=== PATIENT | male | born 1945 | race African-American/Black ===

== ENCOUNTER → 2020-10-09 09:41 | Outpatient (BNVA) | payer BC, SELFPAY | PROVIDERS: Visit Provider Urology ==

== ENCOUNTER → 2021-01-06 13:14 | Outpatient (BNVA) | payer BC, SELFPAY | PROVIDERS: Visit Provider Urology ==

== ENCOUNTER → 2022-01-06 13:23 | Outpatient (BNVA) | payer BC, SELFPAY | PROVIDERS: PCP Internal Medicine; Visit Provider Urology | DX: N52.9 Male erectile dysfunction, unspecified (principal); N30.40 Irradiation cystitis without hematuria; C61 Malignant neoplasm of prostate | CPT/HCPCS: 51798 ==

== ENCOUNTER → 2022-08-10 14:23 | Outpatient (BNVA) | payer BC, SELFPAY | PROVIDERS: PCP Internal Medicine; Visit Provider Urology | DX: N52.9 Male erectile dysfunction, unspecified (principal) | CPT/HCPCS: 51798 ==

== ENCOUNTER 2023-08-18 10:06 | Outpatient (AMB) | payer BC, SELFPAY ==
--- NOTE | 2023-08-18 10:40 | A.OFFVIS_ITS ---
Intake Intake Visit Reasons: 1Y PSA(set)Confirmed Intake Note: Patient is Present for Follow Up Urology Medication: Terazosin Antibiotic Allergies:None Blood Thinners:None Allergies No Known Allergies Allergy (Verified 08/18/23 10:41) Medication List - Last Reconciled 08/18/23 by Miky Bloom MD amitriptyline 25 mg PO BEDTIME atorvastatin 40 mg PO DAILY blood sugar diagnostic As directed insulin aspart U-100 (Novolog U-100 Insulin aspart) subcut insulin lispro subcut losartan 100 mg PO DAILY metoprolol succinate ER 25 mg PO DAILY pantoprazole 40 mg PO DAILY terazosin 20 mg (2 x 10 mg) PO BEDTIME 90 days HPI HPI Comments History of Present Illness Details Tim Wylie is a very pleasant male. They are a patient of Dr. Aviles. They are seen in the office today for the following urologic conditions - prostate cancer - radiation cystitis - bladder outlet obstruction Yearly follow-up PSA remains undetectable Terazosin 20 mg daily Has been free from prostate cancer for 10 years Prostate cancer: 2013 Low-grade treated with external beam radiation Prostate cancer was diagnosed 2013 PSA at diagnosis 9.4, Low risk, low volume disease by D'Simeon Criteria. Diagnosis was reached by needle biopsy, for elevated PSA, PSA at diagnosis 9.4. The Tono grade is 3+3. TNM Classification of Malignant Tumours (TNM) T1c. The D'Simeon (NCCN) risk category is Low Risk (PSA< 10, Gl < 7, T1c). Initial therapy included Primary treatment, External Beam Radiation 2013. Recent labs included a PSA (prostate-specific antigen) September 2014 0.5, January 2016 1.0, 08/16 1.0 09/15 cystoscopy with radiation cystitis, no prostate narrowing 02/15 1.0, 08/17 0.9, 03/19 1.0, 07/18 PSA 1.1, 04/19 0.9, 08/19 0.9, 08/20 0.9, 12/21 1.0, 08/23 0.9 Associated conditions erectile dysfunction Yes Therapeutic plan: Continue with surveillance. Current symptoms include Minimal nocturia. Lower Urinary Tract Symptoms: Radiation cystitis. Current visit is for further evaluation of, lower urinary tract symptoms, predominate irritative symptoms. Current treatment includes medication, alpha tanvi, , terazosin 10 mg Prior treatments include Previous trial of away be medications including Toviaz and Myrbetriq with minimal impact. FORMERLY [facility] Medical History HTN (hypertension) Hypercholesterolemia Hyperlipidemia Diabetes mellitus, type II Radiation cystitis Nocturia BPH (benign prostatic hyperplasia) Glucosuria Erectile dysfunction Prostate cancer Surgical History History of surgery Social History Patient Tobacco Use Status: Former Tobacco user Review of Systems Const Denies chills and Denies fever(s) Card Reports no additional complaints and Denies syncope Resp Denies cough GI Denies abdominal pain and Denies heartburn Reports as per HPI and Denies change in libido Neuro Denies syncope Psych Denies change in libido Endo Denies change in libido Physical Exam Const General: cooperative, healthy appearing, comfortable and no acute distress Orientation/consciousness: patient oriented x3 HEENT Face and sinus: Yes normal facial exam Mouth: moist mucous membranes Neck Neck: Yes normal visual inspection, Yes full ROM and Yes trachea midline Chest Chest palpation & inspection: normal inspection of the chest Resp Effort & Inspection: normal respiratory effort, able to speak in complete sentences and no respiratory distress GI Inspection: Yes normal to inspection Back/Spine/Pelvis Cervical Spine: normal cervical lordosis Thoracic/Lumbar Spine: thoracic and lumbar spine normal to inspection Skin General skin exam: no rashes or lesions noted Neuro General: patient oriented x3, gait normal, tone normal and moves all extremities Extrem General: Yes normal to inspection and Yes capillary refill normal Assessment & Plan Assessment & Plan (1) Erectile dysfunction: Code(s): N52.9 - Male erectile dysfunction, unspecified (2) Prostate cancer: Code(s): C61 - Malignant neoplasm of prostate (3) Radiation cystitis: Code(s): N30.40 - Irradiation cystitis without hematuria Plan 12 month follow-up PSA Orders: Orders Prostate Specific Antigen 364 Days C61 - Malignant neoplasm of prostate Patient Instructions: Imaging studies, laboratory and physical exam results were discussed and reviewed in detail. No major barriers to patient understanding were identified. An opportunity to ask questions regarding the treatment plan was provided. All questions were answered. The patient expressed understanding and agreement with the above treatment plan. The patient is aware they should contact our office by phone for worsening of their current condition or the appearance of new urologic symptoms. Compliance is encouraged with any medications and followup testing that is ordered. It is a privilege to participate in the urologic care of your patient. If you have any questions or concerns regarding treatment for the above conditions, or other urologic issues, please do not hesitate to contact me. The office telephone contact is [phone]. This note is constructed using voice recognition software. While every effort has been made to ensure accuracy press pipe inspector errors may have been included. Yours sincerely, Dr Miky Bloom MD, [facility] - Urology Providers of Expert, Compassionate Care for the Genitourinary System Coding Level of Care Code Est Pt Level 4 (50521) Diagnoses Erectile dysfunction N52.9 Prostate cancer C61 Radiation cystitis N30.40
== END 2023-08-18 10:53 | disposition home or self-care (01) ==
PROVIDERS: Visit Provider Urology
DX: N52.9 Male erectile dysfunction, unspecified (principal); C61 Malignant neoplasm of prostate; N30.40 Irradiation cystitis without hematuria
CPT/HCPCS: 99213

== ENCOUNTER → 2023-08-18 10:06 | Outpatient (BNVA) | payer BC, SELFPAY | PROVIDERS: Visit Provider Urology ==

== ENCOUNTER 2024-08-16 10:25 | Outpatient (AMB) | payer MEDICARE, SELFPAY ==
--- NOTE | 2024-08-16 10:38 | A.OFFVIS_ITS ---
Intake Visit Reasons: 1y/PSA Intake Note: Patient is Present for 1y Follow Up/PSA Urology Medication: Terazosin Antibiotic Allergies:None Blood Thinners:None Piercing Mill Operator Required: No Allergies No Known Allergies Allergy (Verified 08/16/24 10:39) HPI Comments Details: Tim Wylie is a very pleasant male. They are a patient of Dr. Aviles. They are seen in the office today for the following urologic conditions - prostate cancer - radiation cystitis - bladder outlet obstruction Yearly follow-up PSA remains undetectable Terazosin 20 mg daily - higher than typical dose but has not had issues with blood pressure Has been free from prostate cancer for 10 years Insulin-dependent diabetic, last T 10/20 - Prostate cancer: 2013 Low-grade treated with external beam radiation Prostate cancer was diagnosed 2013 PSA at diagnosis 9.4, Low risk, low volume disease by D'Simeon Criteria. Diagnosis was reached by needle biopsy, for elevated PSA, PSA at diagnosis 9.4. The [place] grade is 3+3. TNM Classification of Malignant Tumours (TNM) T1c. The D'Simeon (NCCN) risk category is Low Risk (PSA< 10, Gl < 7, T1c). Initial therapy included Primary treatment, External Beam Radiation 2013. Recent labs included a PSA (prostate-specific antigen) September 2014 0.5, January 2016 1.0, 08/16 1.0 09/15 cystoscopy with radiation cystitis, no prostate narrowing 02/15 1.0, 08/17 0.9, 03/19 1.0, 07/18 PSA 1.1, 04/19 0.9, 08/19 0.9, 08/20 0.9, 12/21 1.0, 08/23 0.9, 08/24 1.0 Associated conditions erectile dysfunction Yes Therapeutic plan: Continue with surveillance. Current symptoms include Minimal nocturia. Lower Urinary Tract Symptoms: Radiation cystitis. Current visit is for further evaluation of, lower urinary tract symptoms, predominate irritative symptoms. Current treatment includes medication, alpha tanvi, , terazosin 10 mg, amitriptyline 25 mg bedtime Prior treatments include Previous trial of away be medications including Toviaz and Myrbetriq with minimal impact. FORMERLY [facility] Medical History HTN (hypertension) Hypercholesterolemia Hyperlipidemia Diabetes mellitus, type II Radiation cystitis Nocturia BPH (benign prostatic hyperplasia) Glucosuria Erectile dysfunction Prostate cancer Surgical History History of surgery Social History Patient Tobacco Use Status: Former Tobacco user Review of Systems Const Denies chills and Denies fever(s) Card Reports no additional complaints and Denies syncope Resp Denies cough GI Denies abdominal pain and Denies heartburn Reports as per HPI and Denies change in libido Neuro Denies syncope Psych Denies change in libido Endo Denies change in libido Physical Exam Const General: cooperative, healthy appearing, comfortable and no acute distress Orientation/consciousness: patient oriented x3 HEENT Face and sinus: Yes normal facial exam Mouth: moist mucous membranes Neck Neck: Yes normal visual inspection, Yes full ROM and Yes trachea midline Chest Chest palpation & inspection: normal inspection of the chest Resp Effort & Inspection: normal respiratory effort, able to speak in complete sentences and no respiratory distress GI Inspection: Yes normal to inspection Back/Spine/Pelvis Cervical Spine: normal cervical lordosis Thoracic/Lumbar Spine: thoracic and lumbar spine normal to inspection Skin General skin exam: no rashes or lesions noted Neuro General: patient oriented x3, gait normal, tone normal and moves all extremities Extrem General: Yes normal to inspection and Yes capillary refill normal Assessment & Plan Assessment & Plan (1) Radiation cystitis: Code(s): N30.40 - Irradiation cystitis without hematuria Category: Medical (2) Erectile dysfunction: Code(s): N52.9 - Male erectile dysfunction, unspecified Category: Medical (3) Prostate cancer: Code(s): C61 - Malignant neoplasm of prostate Category: Medical Plan Twelve month follow-up PSA Orders: Orders Prostate Specific Antigen 12 Months C61 - Malignant neoplasm of prostate Patient Instructions: This note is constructed using voice recognition software. While every effort has been made to ensure accuracy field application engineer errors may have been included. Imaging studies, laboratory and physical exam results were discussed and reviewed in detail. No major barriers to patient understanding were identified. An opportunity to ask questions regarding the treatment plan was provided. All questions were answered. The patient expressed understanding and agreement with the above treatment plan. The patient is aware they should contact our office by phone for worsening of their current condition or the appearance of new urologic symptoms. Compliance is encouraged with any medications and followup testing that is ordered. It is a privilege to participate in the urologic care of your patient. If you have any questions or concerns regarding treatment for the above conditions, or other urologic issues, please do not hesitate to contact me. The office telephone contact is [phone]. Sincerely, Dr Miky Bloom MD, [facility] - Urology Compassionate Specialist Care for the Genitourinary System Coding Level of Care Code Est Pt Level 4 (10571) Complex EM visit Add On G2211 Diagnoses Radiation cystitis N30.40 Erectile dysfunction N52.9 Prostate cancer C61
--- OUTSIDE RECORDS SUMMARY | 2024-08-16 12:28 | XMS_ITS | Clinical Summary ---
Author Organization [address] [place] [address] Address [address] [place] [address] Phone Care Team Providers Care Biblical Studies Professor Name Role Phone Aliza Rios MD Primary Care Provider [phone] Allergies No known active allergies Medications vitamin B complex (VITAMINS B COMPLEX ORAL) Take 1 Tablet by mouth daily. Active atorvastatin (LIPITOR) 40 mg tablet Take 40 mg by mouth daily. Active insulin aspart (NovoLOG Flexpen U-100 Insulin) 100 unit/mL (3 mL) injection pen Inject into the skin. Active aspirin 81 mg EC tablet Take 81 mg by mouth daily. Active amitriptyline (ELAVIL) 25 mg tablet Take 1 Tablet by mouth at bedtime. Active ferrous gluconate (FERGON) 240 mg (27 mg iron) tablet Take 1 Tab by mouth daily. Active multivitamin tablet Take by mouth daily. Active losartan (COZAAR) 100 mg tablet Take 100 mg by mouth daily. Active nitroglycerin (NITROSTAT) 0.[address] 0.4 mg under the tongue every 5 minutes as needed. Active pantoprazole (PROTONIX) 40 mg EC tablet Take 40 mg by mouth daily. Active terazosin (HYTRIN) 10 mg capsule Take 2 capsules (20 mg total) by mouth at bedtime. Active metoprolol succinate (TOPROL-XL) 25 mg 24 hr tabletIndicatio ns:Mixed hyperlipidemia, Atherosclerotic heart disease of solomon coronary artery without angina pectoris TAKE 1 TABLET BY MOUTH EVERY DAY 90 tablet 3 06/14/2024 Active Active Problems Problem Noted Date Diagnosed Date CAD (coronary artery disease) 07/03/2020 Overview (03/22/2024): -Describes having an angioplasty some [address] Rhoades, however, I'm not certain that Dr. Rhoades ever did angioplasty-he might have done a diagnostic cath -See description below regarding more recent symptoms -Had an ETT that was nondiagnostic -Underwent subsequent exercise nuclear stress test-he exercised for 5 minutes to 95% of max predicted heart rate with 8 out of 10 chest pain at peak exercise that resolved over 10 minutes in recovery with evidence of ischemic ECG changes in the inferolateral leads with perfusion imaging showing moderate size, moderate infarct of the basal to mid inferior wall without significant ischemia with an EF of 53% -Most recent echocardiogram in??October 2019 showed mild, concentric left ventricular hypertrophy with normal LV cavity size and systolic function, normal regional wall motion with an ejection fraction of 60 to 65%, no hemodynamically significant valve disease-measurements showing aortic valve area of 1.8 cm?? in the measurement section are likely erroneous, normal RV size and systolic function, mild right atrial enlargement, normal left atrial pressure, normal RV systolic pressure -At his initial visit with me in December 2018, he had been describing some increasing stable anginal symptoms and we attempted a trial of Toprol-XL 25 mg daily which seemed to do the trick as at follow-up visits with Jens?? Edson in March 2019 and October 2019, he was not describing anything in the way of refractory symptoms Last Assessment & Plan: No anginal symptoms described. He is euvolemic on exam. I reviewed the importance of exercising regularly and eating a healthy diet to try to lose weight. For now, continue current metoprolol 25 mg daily, aspirin 81 mg daily, atorvastatin 40 mg at bedtime. Assessment & Plan (05/09/2024 11:23 AM EST): Patient is not having any anginal symptoms at the appointment today, however he is more sedentary than he typically is. Going to update a stress echocardiogram. I spoke to him at length about improving his diet and trying to lose weight. Patient will continue on current regiment for now which includes beta-tanvi metoprolol, aspirin and atorvastatin 40 mg at bedtime. Instructed to call 911 or go to the emergency room should the patient begin to experience chest pain or pressure lasting greater than 10 minutes does not resolve with rest. Orders: Stress echocardiogram (TTE) exercise with PRN contrast, bubble, strain, and 3D order panel; Future Assessment & Plan (05/09/2024 11:23 AM EST): Patient is not having any anginal symptoms at the appointment today, however he is more sedentary than he typically is. Going to update a stress echocardiogram. Orders: ECG 12 lead Stress echocardiogram (TTE) exercise with PRN contrast, bubble, strain, and 3D order panel; Future Hypertension 07/03/2020 Overview (05/09/2024): Assessment & Plan (05/09/2024 11:23 AM EST): Patient is suboptimally controlled at the appointment today. Patient reports that he has no way to take blood pressures at home. I am going to have him come back in 2 weeks for blood pressure recheck. At that time if blood pressure is still elevated would consider switching patient from metoprolol to carvedilol. I did also speak with him about improving his diet, exercising, and weight loss. I do think that if he is able to lose a few pounds, exercise, then his blood pressure values would come down. For now, we will have patient continue on metoprolol 25 mg and losartan 100 mg p.o. daily. Orders: Stress echocardiogram (TTE) exercise with PRN contrast, bubble, strain, and 3D order panel; Future Hyperlipidemia 07/03/2020 Overview (03/22/2024): Last Assessment & Plan: Continue atorvastatin 40 at bedtime. Assessment & Plan (05/09/2024 11:23 AM EST): Would redraw lipid panel. Continue atorvastatin 40 mg at bedtime. Orders: Lipid panel; Future Stress echocardiogram (TTE) exercise with PRN contrast, bubble, strain, and 3D order panel; Future Encounters Date Type Department Care Team Description 06/05/2024 Telephone [facility] - [address] [place] [address] Theodora Alcaraz MA Results ([facility]) 05/28/2024 10:30 AM EST Ancillary Procedure [facility] - [address] [place] [address] Chronic coronary microvascular dysfunction; Hypertension, unspecified type; Hyperlipidemia, unspecified hyperlipidemia type; Coronary artery disease involving solomon heart, unspecified vessel or lesion type, unspecified whether angina present 05/23/2024 2:00 PM EST Clinical Support [facility] - [address] [place] [address] from Last 3 Months Family History Medical History Relation Name Comments Other: chronic kidney disease Father Alzheimer's disease Mother Relation Name Status Comments Father Mother Social History Tobacco Use Types Packs/Day Years Used Date Smoking Tobacco: Former Smokeless Tobacco: Never Alcohol Use Standard Drinks/Week Comments No 0 (1 standard drink = 0.6 oz pur e alcohol) Sex and Gender Information Value Date Recorded Sex Assigned at Not on file Legal Sex Male 6:55 AM EST Gender Identity Not on file Sexual Orientation Not on file Obstetrics History Last Filed Vital Signs Vital Sign Reading Time Taken Comments Blood Pressure 124/60 05/23/2024 1:46 PM EST Pulse 91 05/23/2024 1:46 PM EST Temperature - - Respiratory Rate - - Oxygen Saturation 97% 05/09/2024 10:30 AM EST Inhaled Oxygen Concentration - - Weight 97.1 kg (214 lb) 05/28/2024 11:24 AM EST Height 175.3 cm (5' 9 ) 05/28/2024 11:24 AM EST Body Mass Index 31.6 05/28/2024 11:24 AM EST Plan of Treatment Health Maintenance Due Date Last Done Comments Diabetes: Annual GFR (Glomerular Filtration Rate) 1946 Diabetes: Annual Foot Exam 1956 Diabetes: Annual Retina Eye Exam 1955 DTaP,Tdap,and Td Vaccines (1 - Tdap) 1965 Zoster Vaccines (1 of 2) 1965 Cholesterol Screening (Lipid Panel) 04/11/2022 Depression Screening 04/11/2022 Falls Risk Assessment 04/11/2022 Hepatitis C Screening 04/11/2022 Hypertension/CHF/CAD Annual BMP Blood Test 04/11/2022 Medicare Annual Wellness Visit 04/11/2022 Social Influencers of Health Screening 04/11/2022 Diabetes: Annual Urine Albumin-Creatinine Ratio (uACR) 05/09/2024 Diabetes: Blood Sugar Control Test (HGBA1C) 05/09/2024 Pneumococcal Vaccine: 50+ Years Completed 02/15/2023 Influenza Vaccine Completed 12/17/2023, , 01/28/2022, Additional history exists RSV Immunization Adult Patients Completed 12/17/2023 COVID-19 Vaccine Completed 01/04/2024, , 04/14/2021, Additional history exists HIB Vaccines Aged Out No longer eligi ble based on patient's age to complete this topic HPV Vaccines Aged Out No longer eligi ble based on patient's age to complete this topic Hepatitis A Vaccines Aged Out No long er eligible based on patient's age to complete this topic Hepatitis B Vaccines Aged Out No long er eligible based on patient's age to complete this topic IPV Vaccines Aged Out No longer eligi ble based on patient's age to complete this topic MMR Vaccines Aged Out No longer eligi ble based on patient's age to complete this topic Meningococcal ACWY Vaccine Aged Out N o longer eligible based on patient's age to complete this topic Meningococcal B Vaccine Aged Out No l onger eligible based on patient's age to complete this topic RSV Immunization Patients Under 20 months Aged Out No longer eligible based on patient's age to complete this topic Varicella Vaccines Aged Out No longer eligible based on patient's age to complete this topic Procedures Procedure Name Priority Date/Time Associated Diagnosis Comments STRESS ECHOCARDIOGRAM EXERCISE Routine 05/28/2024 11:25 AM EST Chronic coronary microvascular dysfunction Hypertension, unspecified type Hyperlipidemia, unspecified hyperlipidemia type Coronary artery disease involving solomon heart, unspecified vessel or lesion type, unspecified whether angina present from Last 3 Months Results * STRESS ECHOCARDIOGRAM EXERCISE (05/28/2024 11:25 AM EST) BSA 2.17 m2 CV PACS STRESS Exercise/injec tion duration (min) 3 CV PACS STRESS Exercise/injec tion duration (sec) 27 CV PACS STRESS Peak SBP 150 mmHg CV PACS STRESS Peak DBP 58 mmHg CV PACS STRESS Peak HR 139 bpm CV PACS STRESS Baseline HR 86 bpm CV PACS STRESS Baseline SBP 128 mmHg CV PACS STRESS Baseline DBP 62 mmHg CV PACS STRESS Estimated workload 5.6 METS CV PACS STRESS Percent HR 97 % CV PACS STRESS Rate Pressure Product 20,850.0 mmHg*bpm CV PACS STRESS Target HR 122 bpm CV PACS STRESS Angina Index 0 CV PACS STRESS Max HR Percent 97 % CV PA CS STRESS Anatomical Region Laterality Modality Ultrasound 05/28/2024 10:5 1 AM EST 05/28/2024 11:31 AM EST Narrative 06/01/2024 5:10 PM EST ?There is normal resting left ventricular systolic function and regional wall motion with an ejection fraction of 60 to 65%. ?Exercise stress test was performed. Patient reported no symptoms during the stress test. Exercise capacity was average. Normal blood pressure response; exaggerated heart rate response. ?Stress ECG was non-diagnostic due to baseline ECG abnormalities. ?The study is negative and shows no echocardiographic evidence of ischemia or infarction. Negative exercise stress echocardiogram at a diagnostic heart rate without evidence of ischemia or infarction. ??Normal resting left ventricular systolic function and regional wall motion. Left Ventricle Left ventricle cavity size is normal. There is mild concentric hypertrophy. Systolic function is normal with an ejection fraction of 60-65%. There are no regional LV wall motion abnormalities. Study Details Overall the study quality was adequate. Stress Findings A Az protocol stress test was performed. Overall, the patient's exercise capacity was average. Total stress time was 3 min and 27 sec. The patient experienced no angina during the test. The patient requested the test to be stopped due to back pain. The patient's hemodynamic response was adequate for diagnosis. Blood pressure demonstrated a normal response. Heart rate demonstrated a exaggerated response. The patient reported no symptoms during the stress test. ECG 78-year-old male with history of coronary artery disease/microvascular dysfunction; rule out ischemia. Cardiac risk factors include CAD, hypertension, hyperlipidemia, diabetes, obesity, and previous smoking history. Previous exercise nuclear stress test showed a moderate size, moderate infarct of the basal to mid inferior wall without significant ischemia. Baseline ECG shows sinus rhythm with evidence of previous inferolateral infarct and ST? T wave abnormality. The ECG axis is normal. The ECG shows premature ventricular contractions. There were no arrhythmias during stress. ECG changes are nondiagnostic due to baseline abnormalities. Arrhythmias during recovery: rare premature ventricular contractions (PVCs). ST changes returned to normal during recovery. The result of the stress ECG was non-diagnostic for ischemia due to baseline ECG abnormalities. Echo Post Stress Left ventricular cavity size decreased from baseline. Left ventricular systolic function improved from baseline. Normal wall motion, unchanged from baseline. Nuclear Measurements The study is negative and shows no echocardiographic evidence of ischemia or infarction. us Jun Sharma NP CV ECHO PROCEDURES Final Result from Last 3 Months Insurance [employer]UE [employer] - [place] MEDICARE ADVANTAGE Care Teams Biblical Studies Professor Relationship Specialty Start Date End Date Aliza Rios MD [id number] [place] [address] PCP - General Internal Medicine 05/28/24
--- OUTSIDE RECORDS SUMMARY | 2024-08-16 12:28 | XMS_ITS | Continuity of Care Document ---
Author Organization [facility] [address] [place] [address] Phone [phone] Care Team Providers Care Skin Diving Teacher Name Role Phone Aliza Rios MD Care Team Information Assurance Associate [phone] Problems Active Problems Provider Date Type 2 diabetes mellitus Raul Reyna M.D. O nset: 01/21/2022 Carotid bruit Raul Reyna M.D. Onset: 10/2023 Insulin treated type 2 diabetes mellitus Raul ash M.D. Onset: 11/26/2022 Asymptomatic coronary heart disease Raul barnett M.D. Onset: 01/21/2022 Essential hypertension Raul Reyna M.D. Ons et: 01/21/2022 Carcinoma of prostate Raul Reyna M.D. Onse t: 01/21/2022 Headache Raul Reyna M.D. Onset: Social History Type Date Description Comments Sex Unknown Tobacco Use Start: Unknown Never Smoked Cigarettes Smoking Status Reviewed: 11/26/22 Never Smoked Cigaret yohan ETOH Use Never used alcohol Allergies and adverse reactions Description No Known Drug Allergies Medications Active Medications SIG Qnty Indications Order ing Provider Date [id number]/ML Solution use 90 units daily subcutaneously with insulin pump 60ml E11.9 Nhi Connell M.D. 06/07/2022 Amitriptyline AQJ12fm Tablets 1 qd Raul Reyan M.D. 04/22/2022 Terazosin KFE85xg Capsules 1 cap by mouth as directed at bedtime 90caps Raul Reyna M.D. 04/22/2022 Aspirin Adult Low Onlp63oo Tablets DR 1 by mouth every day Raul Reyna M.D. 04/22/[address] Take 1 Tablet By Mouth Every Day Unknown Atorvastatin Abgbkhp33hv Tablets 1 tab by mouth every day 90tabs Raul Reyna M.D. Losartan Kmhzjhgev901ys Tablets 1 tab by mouth every day 90tabs Raul Reyna M.D. Metoprolol Succinate ER25mg Tablets ER 24HR 1 by mouth every day 90tabs Unknown 000 Onetouch UltraStrips use strips four times a day for glucose monitoring 400units E11.9 Raul Reyna M.D. Vital Signs Date Vital Result Comment 08/08/2024 11:09am BP Systolic 140 mmHg BP Diastolic 72 mmHg Heart Rate 94 /min Height 69 inches 5'9 Weight 205.12 lb BMI (Body Mass Index) 30.3 kg/m2 Results Test Acquired Date Facility Test Result H/L Range Note Glucose Fingerstick 08/08/2024 [facility]house Glucose Fingerstick 137 Hemoglobin A1c 08/02/2024 [facility] Hemoglobin A1c 7.0 % High 4.8-5.6 1, 2 Glucose Fingerstick 06/05/2024 [facility]house Glucose Fingerstick 157 Hemoglobin A1c 05/31/2024 [facility] Hemoglobin A1c 7.1 % High 4.8-5.6 3, 4 Glucose Fingerstick 02/07/2024 [facility] Glucose Fingerstick 195 Glucose Fingerstick 02/03/2024 [facility] Glucose Fingerstick 103 Hemoglobin A1c 01/31/2024 [facility] Hemoglobin A1c 6.7 % High 4.8-5.6 5 Glucose Fingerstick 10/14/2023 [facility] Glucose Fingerstick 58 Hemoglobin A1c 10/14/2023 [facility] Hemoglobin A1c 5.8% Glucose Fingerstick 07/06/2023 [facility] Glucose Fingerstick 95 Hemoglobin A1c 07/01/2023 [facility] Hemoglobin A1c 6.3 % High (4.0-5.6 ) 6 Glucose Fingerstick 04/01/2023 [facility]house Glucose Fingerstick 119 Hemoglobin A1c 03/29/2023 [facility] Hemoglobin A1c 6.3 % High (4.0-5.6 ) 7 Hemoglobin A1c 03/29/2023 [facility] Hemoglobin A1c Duplicate order <SEE NOTE> 8 Glucose Fingerstick 11/26/2022 [facility]house Glucose Fingerstick 154 Hemoglobin A1c 11/23/2022 [facility] Hemoglobin A1c 5.8 % High (4.0-5.6 ) 9 Glucose Fingerstick 07/27/2022 [facility] Glucose Fingerstick 134 Hemoglobin A1c 07/21/2022 [facility] Hemoglobin A1c 6.3 % High (4.0-5.6 ) 10 Glucose Fingerstick 04/22/2022 [facility] Glucose Fingerstick 99 Hemoglobin A1c 04/19/2022 [facility] Hemoglobin A1c 6.1 % High (4.0-5.6 ) 11 Glucose Fingerstick 01/21/2022 [facility]house Glucose Fingerstick 124 Hemoglobin A1c 12/17/2021 [facility] Hemoglobin A1c 5.9 % High (4.0-5.6 ) 12 1 STANDING ORDER EVERY TH REE MONTHS 2 Prediabetes: 5.7 - 6 .4 Diabetes: >6.4 Glycemic control for adults with diabetes: <7.0 3 STANDING ORDER 4 Prediabetes: 5.7 - 6 .4 Diabetes: >6.4 Glycemic control for adults with diabetes: <7.0 5 Prediabetes: 5.7 - 6 .4 Diabetes: >6.4 Glycemic control for adults with diabetes: <7.0 6 MONITORING: In known diabetic patients, hemoglobin A1c targets should be discussed with health care provider. DIAGNOSTIC USE: The [place] Diabetes Association (ADA) and the World Health Organization (WHO) recommend the use of HbA1c to diagnose diabetes using a threshold of 6.5%. Patients who have an HbA1c between 5.7% and 6.4% are considered at increased risk for developing diabetes in the future. CAUTION: Falsely low HbA1c results may be observed in patients with hemolytic anemia, homozygous forms of abnormal hemoglobin (e.g. SS, CC, SC), , recent blood loss or hemoglobin F greater than 7%. Fructosamine may be used as an alternate test in these cases. REFERENCE: ADA: Standards of Medical Care in Diabetes 2020, The Journal of Clinical and Applied Research and Education Volume 43, Supplement 1 7 MONITORING: In known diabetic patients, hemoglobin A1c targets should be discussed with health care provider. DIAGNOSTIC USE: The [place] Diabetes Association (ADA) and the World Health Organization (WHO) recommend the use of HbA1c to diagnose diabetes using a threshold of 6.5%. Patients who have an HbA1c between 5.7% and 6.4% are considered at increased risk for developing diabetes in the future. CAUTION: Falsely low HbA1c results may be observed in patients with hemolytic anemia, homozygous forms of abnormal hemoglobin (e.g. SS, CC, SC), , recent blood loss or hemoglobin F greater than 7%. Fructosamine may be used as an alternate test in these cases. REFERENCE: ADA: Standards of Medical Care in Diabetes 2020, The Journal of Clinical and Applied Research and Education Volume 43, Supplement 1 8 Duplicate order canc elled via interface 9 MONITORING: In known diabetic patients, hemoglobin A1c targets should be discussed with health care provider. DIAGNOSTIC USE: The [place] Diabetes Association (ADA) and the World Health Organization (WHO) recommend the use of HbA1c to diagnose diabetes using a threshold of 6.5%. Patients who have an HbA1c between 5.7% and 6.4% are considered at increased risk for developing diabetes in the future. CAUTION: Falsely low HbA1c results may be observed in patients with hemolytic anemia, homozygous forms of abnormal hemoglobin (e.g. SS, CC, SC), , recent blood loss or hemoglobin F greater than 7%. Fructosamine may be used as an alternate test in these cases. REFERENCE: ADA: Standards of Medical Care in Diabetes 2020, The Journal of Clinical and Applied Research and Education Volume 43, Supplement 1 10 MONITORING: In known diabetic patients, hemoglobin A1c targets should be discussed with health care provider. DIAGNOSTIC USE: The [place] Diabetes Association (ADA) and the World Health Organization (WHO) recommend the use of HbA1c to diagnose diabetes using a threshold of 6.5%. Patients who have an HbA1c between 5.7% and 6.4% are considered at increased risk for developing diabetes in the future. CAUTION: Falsely low HbA1c results may be observed in patients with hemolytic anemia, homozygous forms of abnormal hemoglobin (e.g. SS, CC, SC), , recent blood loss or hemoglobin F greater than 7%. Fructosamine may be used as an alternate test in these cases. REFERENCE: ADA: Standards of Medical Care in Diabetes 2020, The Journal of Clinical and Applied Research and Education Volume 43, Supplement 1 11 MONITORING: In known diabetic patients, hemoglobin A1c targets should be discussed with health care provider. DIAGNOSTIC USE: The [place] Diabetes Association (ADA) and the World Health Organization (WHO) recommend the use of HbA1c to diagnose diabetes using a threshold of 6.5%. Patients who have an HbA1c between 5.7% and 6.4% are considered at increased risk for developing diabetes in the future. CAUTION: Falsely low HbA1c results may be observed in patients with hemolytic anemia, homozygous forms of abnormal hemoglobin (e.g. SS, CC, SC), , recent blood loss or hemoglobin F greater than 7%. Fructosamine may be used as an alternate test in these cases. REFERENCE: ADA: Standards of Medical Care in Diabetes 2020, The Journal of Clinical and Applied Research and Education Volume 43, Supplement 1 12 MONITORING: In known diabetic patients, hemoglobin A1c targets should be discussed with health care provider. DIAGNOSTIC USE: The [place] Diabetes Association (ADA) and the World Health Organization (WHO) recommend the use of HbA1c to diagnose diabetes using a threshold of 6.5%. Patients who have an HbA1c between 5.7% and 6.4% are considered at increased risk for developing diabetes in the future. CAUTION: Falsely low HbA1c results may be observed in patients with hemolytic anemia, homozygous forms of abnormal hemoglobin (e.g. SS, CC, SC), , recent blood loss or hemoglobin F greater than 7%. Fructosamine may be used as an alternate test in these cases. REFERENCE: ADA: Standards of Medical Care in Diabetes 2020, The Journal of Clinical and Applied Research and Education Volume 43, Supplement 1 Procedures Date Code Description Status 08/08/2024 46774 Glucose Monitoring Interpeta tion And Report Completed 06/05/2024 42793 Glucose Monitoring Interpeta tion And Report Completed 02/07/2024 97691 Glucose Monitoring Interpeta tion And Report Completed 07/06/2023 10842 Glucose Monitoring Interpeta tion And Report Completed 04/01/2023 42840 Glucose Monitoring Interpeta tion And Report Completed 04/22/2022 94618 Glucose Monitoring Interpeta tion And Report Completed 01/21/2022 85070 Glucose Monitoring Interpeta tion And Report Completed Medical Devices Description No Information Available Encounters Type Date Location Provider Dx Diagnosis Office Visit 08/08/2024 10:45a Main Office MATT Wilcox E11.9 Type 2 diabet es mellitus without complications Z79.4 residential (current) use of insulin Z96.41 Presence of insulin pump (external) (internal) I10 Essential (primary) hypertension I25.89 Other forms of chron ic ischemic heart disease Assessments Date Code Description Provider 08/08/2024 E11.9 Type 2 diabetes mellitus wit hout complications MATT Wilcox 08/08/2024 Z79.4 meterman (current) use of i nsulin MATT Wilcox 08/08/2024 Z96.41 Presence of insulin pump (ex ternal) (internal) MATT Wilcox 08/08/2024 I10 Essential hypertension MATT Monteiro 08/08/2024 I25.89 Asymptomatic coronary heart disease MATT Wilcox Plan of Treatment Future Appointment(s):* 11/07/2024 10:30 am - MATT Wilcox at Main Office 08/08/2024 - MATT Wilcox* E11.9 Type 2 diabetes mellitus without complications * Z79.4 residential (current) use of insulin * Z96.41 Presence of insulin pump (external) (internal) * I10 Essential hypertension * I25.89 Asymptomatic coronary heart disease Functional Status Description No Information Available Mental Status Description No Information Available Referrals Refer to Dr Reason for Referral Status Appt Abelino e Raul Reyna M.D. Created [address] [place] [address] Drive [address] [place] [address] [phone] Raul Reyna M.D. Created [address] [place] [address] Drive [address] [place] [phone] Raul Reyna M.D. Closed [address] [place] [address] Drive [address] [place] [phone]
--- OUTSIDE RECORDS SUMMARY | 2024-08-16 12:28 | XMS_ITS | Patient Health Record ---
[facility] [place] Address [address] [place] [address] Care Team Providers Care Workers Compensation Attorney Name Role Phone Evelyn Gustafson Primary Care Provider Chaz Cook Unavailable [phone] Allergies No Known Allergies Results Component Value Reference Range Notes HEMOGLOBIN A1C (GLYCOHEMOGLO BIN) Reviewed date:10/19/2023 10:36:51 AM Interpretation: Performing Lab: Notes/Report: HEMOGLOBIN A1C % (HH) 5.8 HEMOGLOBIN A1C (GLYCOHEMOGLO BIN) Reviewed date:04/18/2024 10:40:40 AM Interpretation: Performing Lab: Notes/Report: TOTAL HEMOGLOBIN (HGBA1C) 6.3 Reason For Referral Diagnosis 1 Type 1 diabetes pepito itus with diabetic polyneuropathy (E10.42) Referring Provider First Name Evelyn Referring Provider Last Name Sj Referred Organization [facility] Referred Provider Chaz Maria Referred Address [address] [place] [address],[facility] [address] [place] [address], Referred Provider Specialty Podiatry Referral Priority Routine Medications Medication SIG (Take, Route, Frequency, Duration) Notes Start Date End Date Status Nitroglycerin PRN Not-Ta candida NovoLOG Active HumaLOG as directed Subcutan eous 4 times a day Not-Taking Daily Vitamin Active NovoLOG 100 UNIT/ML Subcutaneous Not-Taking Atorvastatin Calcium 40 MG 1 tablet Orally Once a day 10/08/2013 Active Tamsulosin HCl Not-T aking Aspirin EC 81 MG 1 tablet Orally Once a day for 30 day(s) Active Crestor 20 MG 1 tablet Orally Once a day for 30 day(s) Not-Taking iron Active Zetia 10 MG 1 tablet Orally Once a day for 30 day(s) Not-Taking Losartan Potassium A ctive Terazocin Active Metoprolol Succinate Active Ciclopirox Olamine 0.77 % 1 application to affected area Externally to feet Twice a day for 30 days Active Extra Depth Orthopedic Shoes (1 Pair) with Customized Heat Molded Multidensity Innersoles (3 Pair) as directed Dx: IDDM/Polyneuropathy (E10.42), Hammertoe Foot Deformity (M20.41,M20.42), Preulcerative Skin Lesion(s) (L85.1) 04/13/2023 Active Pantoprazole Sodium Active Immunizations Vaccine Route Administration Date Status Comme nts Influenza Unknown 05/21/2015 Administered Influenza Unknown 01/01/2016 Administered Influenza Unknown 01/24/2017 Administered Influenza Unknown 01/30/2018 Administered Influenza Unknown 01/10/2020 Administered Social History Tobacco Use: Social History Observation Description Date Details (start date - stop date) Former Smoker NA - NA Tobacco Use/Smoking Question Answer Notes Are you a: former smoker Additional Findings: Tobacco Non-User Current no n-smoker Alcohol Screen Question Answer Notes Did you have a drink containing alcohol in the p ast year? No Points 0 Interpretation Negative Tobacco use other than smoking: Question Answer Notes Are you an other tobacco user? No Problems Problem Type SNOMED Code ICD Code Onset Dates Problem Status W/U Status Risk Notes Problem Acquired hammer toe of right foot (9728923692701635 ) Other hammer toe(s) (acquired), right foot (M20.41) Active confirmed Response to treatment, Improvemen t Problem Acquired hammer toe of left foot (8106371601646013 ) Other hammer toe(s) (acquired), left foot (M20.42) Active confirmed Response to treatment, Improvemen t Problem Polyneuropathy due to diabetes mellitus type I (925911442) Type 1 diabetes mellitus with diabetic polyneuropathy (E10.42) Active confirmed Vital Signs Blood pressure diastolic 70 mm Hg 04/18/2024 Height 5ft 9in in 04/18/2024 Blood pressure systolic 138 mm Hg 04/18/2024 Weight 210 lbs 04/18/2024 BMI 31.01 kg/m2 04/18/2024 Procedures Procedure Date Ordered Date Performed Result Body Sit e 42755-NCBZGMX NAIL, 6 OR MORE 10/19/2023 N/A 54797-Hfhgylnr Plate 10/19/2023 N/A 48795-XJGQ SKIN LESIONS, OVER 4 10/19/2023 N/A 38045-UWVDLMR NAIL, 6 OR MORE 04/18/2024 N/A 13433-Hvkpqphz Plate 04/18/2024 N/A 84357-GGAH SKIN LESIONS, OVER 4 04/18/2024 N/A Encounters Encounter Location Date Provider Diagnosis [address] [address] 10/19/2023 Chaz Maria Type 1 diabetes mellitus with diabetic polyneuropathy E10.42 ; Tinea unguium B35.1 ; Other hammer toe(s) (acquired), right foot M20.41 ; Other hammer toe(s) (acquired), left foot M20.42 and Ingrown nail L60.[address] [address] 04/18/2024 Chaz Maria Type 1 diabetes mellitus with diabetic polyneuropathy E10.42 ; Tinea unguium B35.1 and [facility] [address] 12/17/2023 Chaz Josephier Assessments Encounter Date Diagnosis (ICD Code) Assessment Notes Treatment Notes Treatment Clinical Notes Section Notes 10/19/2023 Type 1 diabetes mellitus with diabetic polyneuropathy (ICD-10 - E10.42) 10/19/2023 Tinea unguium (ICD-10 - B35.1) 04/18/2024 Type 1 diabetes mellitus with diabetic polyneuropathy (ICD-10 - E10.42) 04/18/2024 Tinea unguium (ICD-10 - B35.1) 04/18/2024 Ingrown nail (ICD-10 - L60.0) 10/19/2023 Other hammer toe(s) (acquired), right foot (ICD-10 - M20.41) Response to treatment,Impro vement 10/19/2023 Other hammer toe(s) (acquired), left foot (ICD-10 - M20.42) Response to treatment,Impro vement 10/19/2023 Ingrown nail (ICD-10 - L60.0) Plan Of Treatment Pending Test Test Name Order Date Hemoglobin A1c 10/07/2014 Hemoglobin A1c 04/09/2015 85197-UWBXIJG NAIL, 6 OR MORE 04/09/2015 12059-YFAYZDB NAIL, 6 OR MORE 10/02/2015 69836-OTOHNYC NAIL, 6 OR MORE 04/01/2016 64553-KIDBQGO NAIL, 6 OR MORE 04/12/2011 28567-CDAILWJ NAIL, 6 OR MORE 10/04/2011 94528-NCIFWMP NAIL, 6 OR MORE 04/19/2012 02122-BVWHYWZ NAIL, 6 OR MORE 10/18/2012 57496-CAWQVVF NAIL, 6 OR MORE 04/09/2013 98497-OWLPQNZ NAIL, 6 OR MORE 10/08/2013 17506-CQDWZTO NAIL, 6 OR MORE 04/08/2014 78731-TTZTUWI NAIL, 6 OR MORE 10/07/2014 54968-UIWNECV NAIL, 6 OR MORE 09/30/2016 56160-RNJFDTL NAIL, 6 OR MORE 04/07/2017 48780-OTAFQFY NAIL, 6 OR MORE 10/06/2017 90644-HZPTTSG NAIL, 6 OR MORE 04/06/2018 97027-MPTTGGU NAIL, 6 OR MORE 10/05/2018 16278-PQSZBTA NAIL, 6 OR MORE 04/05/2019 49615-OKQSYVN NAIL, 6 OR MORE 10/04/2019 63120-NSYAKDV NAIL, 6 OR MORE 04/03/2020 97904-SBVVJPS NAIL, 6 OR MORE 10/15/2020 23625-WFHGOLB NAIL, 6 OR MORE 04/16/2021 47155-JVVDZRJ NAIL, 6 OR MORE 10/14/2021 68294-LLUGJBN NAIL, 6 OR MORE 04/14/2022 08894-QNUFFTO NAIL, 6 OR MORE 10/13/2022 50327-WCUVRUB NAIL, 6 OR MORE 04/13/2023 33039-MEJZZNX NAIL, 6 OR MORE 10/19/2023 66421-JQVLBTN NAIL, 6 OR MORE 04/18/2024 03679-Tilgkypg Plate 04/18/2024 94810-Tzvivvfo Plate 04/13/2023 72125-Zhnbcqjx Plate 10/19/2023 84325-JNMF SKIN LESIONS, OVER 4 10/19/19 24 73526-VDZK SKIN LESIONS, OVER 4 04/13/20 23 02255-QBSO SKIN LESIONS, OVER 4 04/18/20 24 33513-CAVE SKIN LESIONS, OVER 4 10/14/19 23 47355-YHHX SKIN LESIONS, OVER 4 04/14/20 22 67438-FZPN SKIN LESIONS, OVER 4 10/15/19 22 52089-UWWG SKIN LESIONS, OVER 4 04/16/20 21 55591-XCAF SKIN LESIONS, OVER 4 10/16/19 21 22961-HVXS SKIN LESIONS, OVER 4 04/03/20 20 75446-GTAY SKIN LESIONS, OVER 4 10/04/19 20 84140-YVIR SKIN LESIONS, OVER 4 04/05/20 19 46528-KLRW SKIN LESIONS, OVER 4 10/06/19 19 90992-BTZN SKIN LESIONS, OVER 4 04/06/20 18 23722-KXUP SKIN LESIONS, OVER 4 10/07/19 18 98163-ADLR SKIN LESIONS, OVER 4 04/07/20 17 97700-CWVL SKIN LESIONS, OVER 4 04/01/20 16 42678-HWEM SKIN LESIONS, OVER 4 10/01/19 17 40986-LFQG SKIN LESIONS, OVER 4 10/02/19 16 87410-CKJA SKIN LESIONS, OVER 4 04/09/20 15 34677-GEFG SKIN LESIONS, 2 TO 4 10/08/19 15 35679-YDZN SKIN LESIONS, 2 TO 4 04/08/20 14 30037-AYUM SKIN LESIONS, 2 TO 4 04/09/20 13 Next Appt Details Provider Name:Chaz Maria , 10/17/2024 10:30:00 AM, [address] [facility], [facility] [address], [place], [address], Insurance Providers Payer Name Payer Address Payer Phone Subscriber Number Group Number Insured Name Patient Relationship to Insured Coverage Start Date Coverage End Date [facility] 65 Medicare Preferred [address] [place] [address] [id number] Tim Wylie Self - patient is the insured Medical (General) History Medical History History ICD Code Cholesterol measles heart disease cancer Diabetic Surgical History Surgery Date(Month/Year) angioplasty prostate surgery cataract surgery-bilateral Hospitalization History Reason Date(Month/Year) [facility]- headaches 10/2020 [facility] insertion in head 10/2016
--- OUTSIDE RECORDS SUMMARY | 2024-08-16 12:28 | XMS_ITS ---
Author Organization [facility] Address [address] [place] [address] Care Team Providers Care Ophthalmic Medical Technician Name Role Phone Evelyn Gustafson Primary Care Provider Chaz Cook Unavailable [phone] REASON FOR VISIT Referral Needed Encounters Encounter Location Date Provider Diagnosis [facility] [address] [place] [address] 12/17/2023 Chaz Maria Plan Of Treatment Next Appt Details Provider Name:Chaz Maria , 10/17/2024 10:30:00 AM, [address] [facility] [place] [address], [place], [address], Progress Notes * Tim WYLIEDOB:1945 ( 78 yo M)Acc No.[id number]:12/17/2023 Patient:?Tim Wylie :1945???Age:78 Y???Sex:Male Address:[address] [place] [id number] * true * Date:? Generated for Printi ng/Faanaliag/eTransmitting on:?08/16/2024 12:27 PM EDT
--- OUTSIDE RECORDS SUMMARY | 2024-08-16 12:28 | XMS_ITS ---
Author Organization [facility] shannan Melvin Address [address] [place] [address] Care Team Providers Care Film Painter Name Role Phone Evelyn Gustafson Primary Care Provider Chaz Cook Unavailable [phone] Allergies No Known Allergies REASON FOR VISIT At Risk Footcare, Toe Irritation, Ingrown Nail Medications Medication SIG (Take, Route, Frequency, Duration) Notes Start Date End Date Status Aspirin EC 81 MG 1 tablet Orally Once a day for 30 day(s) Active Atorvastatin Calcium 40 MG 1 tablet Orally Once a day 10/08/2013 Active Daily Vitamin Active NovoLOG Active Pantoprazole Sodium Active Zetia 10 MG 1 tablet Orally Once a day for 30 day(s) Not-Taking Crestor 20 MG 1 tablet Orally Once a day for 30 day(s) Not-Taking Tamsulosin HCl Not-T aking NovoLOG 100 UNIT/ML Subcutaneous Not-Taking HumaLOG as directed Subcutan eous 4 times a day Not-Taking Ciclopirox Olamine 0.77 % 1 application to affected area Externally to feet Twice a day for 30 days Active Metoprolol Succinate Active Terazocin Active Nitroglycerin PRN Not-Ta candida Extra Depth Orthopedic Shoes (1 Pair) with Customized Heat Molded Multidensity Innersoles (3 Pair) as directed Dx: IDDM/Polyneuropathy (E10.42), Hammertoe Foot Deformity (M20.41,M20.42), Preulcerative Skin Lesion(s) (L85.1) 04/13/2023 Active Losartan Potassium A ctive iron Active Social History Tobacco Use: Social History Observation [...] Are you an other tobacco user? No Vital Signs Height 5ft 9in in 10/19/2023 Weight 211 lbs 10/19/2023 BMI 31.16 kg/m2 10/19/2023 Procedures Procedure Date Ordered Date Performed Result Body Sit e 66421-YGTWPOJ NAIL, 6 OR MORE 10/19/2023 N/A 82241-Trhifftk Plate 10/19/2023 N/A 86104-RAKH SKIN LESIONS, OVER 4 10/19/2023 N/A Encounters Encounter Location Date Provider Diagnosis [facility] [place] [address] [place] [id number] 10/19/2023 Chaz Maria Type 1 diabetes mellitus with diabetic polyneuropathy E10.42 ; Tinea unguium B35.1 ; Other hammer toe(s) (acquired), right foot M20.41 ; Other hammer toe(s) (acquired), left foot M20.42 and Ingrown nail L60.0 Assessments Encounter Date Diagnosis (ICD Code) Assessment Notes Treatment Notes Treatment Clinical Notes Section Notes 10/19/2023 Type 1 diabetes mellitus with diabetic polyneuropathy (ICD-10 - E10.42) 10/19/2023 Tinea unguium (ICD-10 - B35.1) 10/19/2023 Other hammer toe(s) (acquired), right foot (ICD-10 - M20.41) Response to treatment,Impro vement 10/19/2023 Other hammer toe(s) (acquired), left foot (ICD-10 - M20.42) Response to treatment,Impro vement 10/19/2023 Ingrown nail (ICD-10 - L60.0) Plan Of Treatment Pending Test Test Name Order Date 69570-RVBPAJO NAIL, 6 OR MORE 10/19/2023 63849-Ywylyumu Plate 10/19/2023 98987-AMJQ SKIN LESIONS, OVER 4 10/19/19 24 Next Appt Details Follow Up: prn, Reason: Provider Name:Chaz Maria , 10/17/2024 10:30:00 AM, [address] [facility], [address], [place], [address], Procedure Notes * Category Sub-Category Detail Notes Nail Avulsion Procedure A fine sterile e levator was placed between the eponychium, nail fold, and nail plate to separate the structures. A sterile nail splitter, and/or sterile 316 blade, was then used to longitudinally section the nail along its entire length through the eponychium to the area under the nail fold. The offending portion of nail was from the nail bed with a rolling action and then removed with a hemostat. No underlying bone was identified. There was minimal bleeding as hemostasis was achieved through the temporary use of either a digital tourniquet or the aforementioned local with epinephrine. A bacitracin sterile dressing was applied. Local wound aftercare instructions were discussed and dispensed. The patient was informed of both conservative and future surgical procedures to prevent recurrence. Tylenol or Motrin was recommended for pain or discomfort (47632) , DIABETES: Pt was advised as to the risk of delayed or nonhealing due to diabetes. Pt is to call the office with any questions, concerns, or complications Anesthesia was deferred - NEURO STEVE: patient has medically documented neuropathic condition affecting sensation Location Medial nail border , T5 Debride Nail 6-10 Nail debridement Nail debridem ent performed extensively to reduce/remove overall nail length, girth, thickness, subungual debris, and necrotic tissue, by manual and electrical means through the use of a nail nipper and/or dremel, to more viable healthy nail plate or bed tissue 1-5. Silver nitrate used for any petechial bleeding as necessary. Patient chooses, no pharmaceutical tx (05193) Keratoma Treatment Parring or Cutting o f Benign Hyperkeratotic Lesion(s) 92032 ( >4 Lesions) - The Benign hyperkeratotic lesions, as described above were pared, and/or cut utilizing a sterile #15 blade, tissue nippers, and/or dremel Progress Notes * Tim WYLIEDOB:1945 ( 78 yo M)Acc No.[id number]:10/19/2023 Progress Note Patient:?Tim WYLIE Provider:?Chaz Maria DPM :1945???Age:78 Y???Sex:Male Abelino e:10/19/2023 Address:[address] [place], [place] [id number] Pcp:Evelyn Gustafson Subjective: * Chief Complaints: * ???At Risk FootcareToe Irrit ationIngrown Nail * HPI: ???At Risk footcare:?Pt States Last PCP Visit:?Date?08/30/2023 ???Toe pain:?Treatments:?Rx shoes .? * ROS:?General/Constitutional:?Nausea?denies.?Vomiting?denies.?Hunger Thirst?denies.?Loss appetite?denies.?Chills?denies.?Fatigue?denies.?Fever?denies.?Night Sweats?denies.?Unexplained weight loss?denies.?Ophthalmologic:?Blurred vision?denies.?Red eye?denies.?HEENTM:?Dentures?denies.?Dizziness?denies.?Glasses/contacts?denies.?Retinopathy?de nies.?Blurred/double vision?denies.?TMJ?denies.?Discharge/drainage?denies.?Implants?denies.?Hard of hearing denies.?Difficulty chewing/swallowing/speaking?denies.?Nose bleeds?denies.?Sore mouth?denies.?Swollen glands?denies.?Respiratory:?On Oxygen?denies.?Pneumonia/pleurisy?denies.?Bronchitis?denies.?Emphysema?denies.?C oughing?denies.?Cough blood?denies.?Shortness of breath?denies.?Wheezing?denies.?Cardiovascular:?Pacemaker?denies.?MVP?denies.?WPW?denies.?CHF?denies.?Heart attack?denies.?Septal defect?denies.?Rapid beat?denies.?Chest pain ?denies.?Atrial Fib.?denies.?Murmur/Palpitations?denies.?Gastrointestinal:?Hemorrhoids?denies.?Stomach/Abdominal pain?denies.?Dark blood stool?denies.?Irritable bowel ?denies.?Constipation?denies.?Diarrhea?denies.?Vomiting?denies.?Hematology:?Swelling?denies.?Bruising??admits, on aspirin.?Bleeding problem??admits, on anticoagulants.?Genitourinary:?Blood urine?denies.?Frequent/Painfu/urination/bladder control?denies.?Kidney stones?denies.?Infection (UTI)?denies.?Nephropathy?denies.?Musculoskeletal:?Hammertoes?admits.?Bunions?denies.?Scoliosis/kyphosis?denies.?Muscle cramps / walking?denies.?Generalized aches and pains?denies.?Weakness?denies.?Integ.:?Tolliver?denies.?Scars?denies.?Corns/calluses?admits.?Ingrown nails?admits.?Painful nails? denies.?Rashes?denies.?Neurologic:?Difficulty sleeping?denies.?Bipolar?denies.?Brain disorder?denies.?Balance trouble?denies.?Confusion?denies.?Fainting/blackouts?denies.?Headache?denies.?Tr emors?denies.? * Medical History:? * Surgical History:?angioplast y prostate surgery cataract surgery-bilateral * Hospitalization/Major Diagno stic Procedure:?[facility] insertion in head 10/2016[facility]- headaches 10/2020 * Family History:?Mother: dece ased, diagnosed with Diabetic - NIDDM.?Father: , heart attack, diagnosed with Unspecified heart disease.?Daughter(s): alive.?Spouse: .?1 daughter(s) . .? * Social History:?Tobacco Use:?Tobacco Use/Smoking?Are you a:?former smoker ?Additional Findings: Tobacco Non-User?Current non-smoker ?Tobacco use other than smoking?Are you an other tobacco user??No ???Drugs/Alcohol:?Drugs?Have you used drugs other than those for medical reasons in the past 12 months??No ?Alcohol Screen?Did you have a drink containing alcohol in the past year??No ?Points?0 ?Interpretation?Negative ???Miscellaneous:?Caffeine: yes, 1-2 cups per day. ?Children: one. ?Exercise: yes, occasional. ?Marital status: . ?Occupation: retired. * Medications:?TakingPantopraz ole Sodium NovoLOG Daily Vitamin Atorvastatin Calcium 40 MG Tablet 1 tablet Orally Once a day Aspirin EC 81 MG Tablet Delayed Release 1 tablet Orally Once a day iron Losartan Potassium Terazocin Metoprolol Succinate Ciclopirox Olamine 0.77 % Cream 1 application to affected area Externally to feet Twice a day Extra Depth Orthopedic Shoes (1 Pair) with Customized Heat Molded Multidensity Innersoles (3 Pair) as directed Dx: IDDM/Polyneuropathy (E10.42), Hammertoe Foot Deformity (M20.41,M20.42), Preulcerative Skin Lesion(s) (L85.1) Taking Pantoprazole Sodium Taking NovoLOG Taking Daily Vitamin Taking Atorvastatin Calcium 40 MG Tablet 1 tablet Orally Once a day Taking Aspirin EC 81 MG Tablet Delayed Release 1 tablet Orally Once a day Taking iron Taking Losartan Potassium Taking Terazocin Taking Metoprolol Succinate Taking Ciclopirox Olamine 0.77 % Cream 1 application to affected area Externally to feet Twice a day Taking Extra Depth Orthopedic Shoes (1 Pair) with Customized Heat Molded Multidensity Innersoles (3 Pair) as directed Dx: IDDM/Polyneuropathy (E10.42), Hammertoe Foot Deformity (M20.41,M20.42), Preulcerative Skin Lesion(s) (L85.1) Not-Taking/PRNNitroglycerin , Notes to Pharmacist: PRNHumaLOG Solution as directed Subcutaneous 4 times a day NovoLOG 100 UNIT/ML Solution Subcutaneous Tamsulosin HCl Crestor 20 MG Tablet 1 tablet Orally Once a day Zetia 10 MG Tablet 1 tablet Orally Once a day Medication List reviewed and reconciled with the patientNot-Taking/PRN Nitroglycerin , Notes to Pharmacist: PRNNot-Taking/PRN HumaLOG Solution as directed Subcutaneous 4 times a day Not-Taking/PRN NovoLOG 100 UNIT/ML Solution Subcutaneous Not-Taking/PRN Tamsulosin HCl Not-Taking/PRN Crestor 20 MG Tablet 1 tablet Orally Once a day Not-Taking/PRN Zetia 10 MG Tablet 1 tablet Orally Once a day Medication List reviewed and reconciled with the patient * Allergies:?N.K.D.A.yes[Aller gies Verified] Objective: * Vitals:?Ht: 5ft 9in, Wt: 211 , BMI: 31.16, Shoe size: 9.5, BS: 113, Ht-cm: 175.26 cm, Wt-k.71 kg. * ???Past Orders: ???Lab:HEMOGLOBIN A1C (GLYCO HEMOGLOBIN) (Order Date - 10/19/2023) (Collection Date & Time - 10/19/2023 10:36 AM) ? Value Reference Range ?HEMOGLOBIN A1C % (HH) 5.8 * Examination: ???Neurological: ?SENSORY:?Neurological exam demonstrates, reduced light touch sensation, reduced sharp/dull pin prick discrimination , B/L, 5.07 monofilament test performed at plantar aspects of 5 varied sites per foot shows sensation, reduced , B/L, Pt relates, paresthesia, pins and needles sensation, tingling, at rest, especially in the evening, B/L.?Nails: ?NAILS are:?Elongated, overgrown, dystrophic, lytic, greater than 3mm thick, discolored and friable with crumbly malodorous subungual debris, TA, T1, T4, T5, T6, T8, T9, remaining nails are elongated, overgrown, dystrophic, nailplate causing indentation of distal toe, T9.?Ingrown Nail: ?INSPECTION:?Reveals nail incurvation, dull pain on palpation due to neuropathy, groove hypertrophy , Medial nail border , T5.?Dermatologic: ?SKIN FINDINGS:?Skin exam reveals Keratotic lesion(s) located at, Medial plantar, IPJ, TA, Medial plantar, IPJ, T5, SUB MTH (s), 1, B/L , SUB MTH (s), 3, Right , SUB MTH (s), 5, Right , Heel(s), B/L.?Orthopedic: ?DIGITAL DEFORMITIES:?Digital contracture, PIPJ, 2-5 B/L, incompl-reducible to push-up test, no over, nor underlapping.?FOOTWEAR:?good condition, exhibit proper fit and accommodation for pedal deformities. OT were inspected and noted to be worn, but in good condition giving proper support at the present time.? Assessment: * Assessment: 1.?Type 1 diabetes mellitus with diabetic polyneuropathy - E10.42???2.?Tinea unguium - B35.1???3.?Other hammer toe(s) (acquired), right foot - M20.41???Specify :Chronic problem, Stable (1=3,2=4)???Notes :Response to treatment,Improvement???4.?Other hammer toe(s) (acquired), left foot - M20.42???Specify :Chronic problem, Stable (1=3,2=4)???Notes :Response to treatment,Improvement???5.?Ingrown nail - L60.0???Specify :Medial nail border , T5??? Plan: * Treatment: 2.?Ingrown nail?Procedure: 00412-Fvbwsquk Plate * Procedures:?Debride Nail 6-10:?Nail debridement?Nail debridement performed extensively to reduce/remove overall nail length, girth, thickness, subungual debris, and necrotic tissue, by manual and electrical means through the use of a nail nipper and/or dremel, to more viable healthy nail plate or bed tissue 1-5. Silver nitrate used for any petechial bleeding as necessary. Patient chooses, no pharmaceutical tx (97715).?Keratoma Treatment:?Parring or Cutting of Benign Hyperkeratotic Lesion(s)?78132 ( >4 Lesions) - The Benign hyperkeratotic lesions, as described above were pared, and/or cut utilizing a sterile #15 blade, tissue nippers, and/or dremel.?Nail Avulsion:?Location?Medial nail border?,?T5.?Anesthesia?was deferred - NEUROPATHY: patient has medically documented neuropathic condition affecting sensation.?Procedure?A fine sterile elevator was placed between the eponychium, nail fold, and nail plate to separate the structures. A sterile nail splitter, and/or sterile 316 blade, was then used to longitudinally section the nail along its entire length through the eponychium to the area under the nail fold. The offending portion of nail was from the nail bed with a rolling action and then removed with a hemostat. No underlying bone was identified. There was minimal bleeding as hemostasis was achieved through the temporary use of either a digital tourniquet or the aforementioned local with epinephrine. A bacitracin sterile dressing was applied. Local wound aftercare instructions were discussed and dispensed. The patient was informed of both conservative and future surgical procedures to prevent recurrence. Tylenol or Motrin was recommended for pain or discomfort (94377) , DIABETES: Pt was advised as to the risk of delayed or nonhealing due to diabetes. Pt is to call the office with any questions, concerns, or complications.? * Procedure Codes:?03032 DEBRI DE NAIL, 6 OR MORE, Modifiers: XS 89840 Avulsion Plate, Modifiers: XS , [id number] TRIM SKIN LESIONS, OVER 4, Modifiers: XS * Preventive Medicine:? ??Counseling:?Discussion:?-13: Office or other outpatient visit for the evaluation and management of an established patient, which required a medically appropriate history and/or examination and LOW level of DECISION MAKING for: 1 STABLE ACUTE UNCOMPLICATED PROBLEM, 2 OR MORE MINOR PROBLEMS, OR 1 STABLE CHRONIC PROBLEM, THAT POSE(S) A LOW RISK FOR MORBIDITY/MORTALITY. The visit on the day of the encounter encompassed interpreting the data and educating the patient as to the nature of their condition, treatment options available according to their individual PMH, meds, allergies, and overall health/living conditions, as well as any potential risks or complications that may occur from a failure to adhere to, and participate in, the recommended course of therapy. The discussion included a complete verbal, and/or written explanation of the examination results, any x-rays taken, the proposed diagnosis, and outline of the treatment plan. A schedule for future care needs was also explained. The patient verbalized an understanding of the instructions at this time and agreed to be an active participant in their treatment. If the patient should think of any questions or concerns after the visit, I have encouraged the patient to call the office.?Shoe Gear Counseling:?A thorough inspection of the patients Rxed shoegear and inserts was performed and findings communicated. We reviewed the many important medical advantages for adhering to regularly wearing these shoe and insert accomidative devices daily as well as reviewed the fact that a failure in accepting these recommedations may be deleterious, unable to prevent, and disadvantagely result in, many pedal complications such as skin irritation, skin ulceration, infection, and even loss of toe/foot/leg/or even their life. Time was also spent reviewing the proper footcare techniques including daily skin moisturization, daily foot inspection for any interruption in skin integrity, open lesions, or sign of infection such as redness/malodor/drainage/swelling as well as daily shoe inspection for the presence of internal foreign bodies and shoe as well as insert wear. Patient questions re: shoes, inserts, and self foot inspections were answered to their satisfaction as the patient verbally confirmed a full understanding of the above information.? ??Screening/Special Tests:?Fall Risk?Screening:?No falls in the past year ?FALLS: Screening for Future Fall Risk?Have you had any falls with injury in the past year??No * Follow Up:?prn * Images: * Sign off status: Completed Addendum: * ? true * Provider:?Chaz Maria DPM Date:?2023 Generated for Soto carroll/Femi/eTransmitting on:?08/16/2024 12:28 PM EDT History and Physical Notes * HPI (History of Present Illness) Category Sub-Category Detail Notes Category Not es Toe pain Treatments: Rx shoes At Risk footcare Pt States Last PCP Visit: Date: Examination Category Sub-Category Detail Notes Category Not es Ingrown Nail INSPECTION: Reveals nail inc urvation, dull pain on palpation due to neuropathy, groove hypertrophy , Medial nail border , T5 Neurological SENSORY: Neurological exa m demonstrates, reduced light touch sensation, reduced sharp/dull pin prick discrimination , B/L, 5.07 monofilament test performed at plantar aspects of 5 varied sites per foot shows sensation, reduced , B/L, Pt relates, paresthesia, pins and needles sensation, tingling, at rest, especially in the evening, B/L Neurological exam demonstrat es, reduced light touch sensation, reduced sharp/dull pin prick discrimination , B/L, 5.07 monofilament test performed at plantar aspects of 5 varied sites per foot shows sensation, reduced , B/L, Pt relates, paresthesia, pins and needles sensation, tingling, at rest, especially in the evening, B/L Dermatologic SKIN FINDINGS: Skin exam reveal s Keratotic lesion(s) located at, Medial plantar, IPJ, TA, Medial plantar, IPJ, T5, SUB MTH (s), 1, B/L , SUB MTH (s), 3, Right , SUB MTH (s), 5, Right , Heel(s), B/L Orthopedic FOOTWEAR EVALUATION: good condit ion, exhibit proper fit and accommodation for pedal deformities. OT were inspected and noted to be worn, but in good condition giving proper support at the present time DIGITAL DEFORMITIES: Digital contracture , PIPJ, 2-5 B/L, incompl-reducible to push-up test, no over, nor underlapping Nails NAILS are: Elongated, overg rown, dystrophic, lytic, greater than 3mm thick, discolored and friable with crumbly malodorous subungual debris, TA, T1, T4, T5, T6, T8, T9, remaining nails are elongated, overgrown, dystrophic, nailplate causing indentation of distal toe, T9
--- OUTSIDE RECORDS SUMMARY | 2024-08-16 12:28 | XMS_ITS ---
Author Organization [facility] shannan Wildwood Address [address] [place] [address] Care Team Providers Care Daytime Caregiver Name Role Phone Evelyn Gustafson Primary Care Provider Chaz Cook Unavailable [phone] Allergies No Known Allergies REASON FOR VISIT At Risk Footcare, Ingrown Nail Medications Medication SIG (Take, Route, Frequency, Duration) Notes Start Date End Date Status Pantoprazole Sodium Active NovoLOG 100 UNIT/ML Subcutaneous Not-Taking Tamsulosin HCl Not-T aking Crestor 20 MG 1 tablet Orally Once a day for 30 day(s) Not-Taking Zetia 10 MG 1 tablet Orally Once a day for 30 day(s) Not-Taking Ciclopirox Olamine 0.77 % 1 application to affected area Externally to feet Twice a day for 30 days Active Extra Depth Orthopedic Shoes (1 Pair) with Customized Heat Molded Multidensity Innersoles (3 Pair) as directed Dx: IDDM/Polyneuropathy (E10.42), Hammertoe Foot Deformity (M20.41,M20.42), Preulcerative Skin Lesion(s) (L85.1) 04/13/2023 Active Nitroglycerin PRN Not-Ta candida HumaLOG as directed Subcutan eous 4 times a day Not-Taking Metoprolol Succinate Active Atorvastatin Calcium 40 MG 1 tablet Orally Once a day 10/08/2013 Active Aspirin EC 81 MG 1 tablet Orally Once a day for 30 day(s) Active iron Active Losartan Potassium A ctive Terazocin Active NovoLOG Active Daily Vitamin Active Social History Tobacco Use: Social History [...] No Vital Signs Height 5ft 9in in 04/18/2024 Weight 210 lbs 04/18/2024 BMI 31.01 kg/m2 04/18/2024 Blood pressure systolic 138 mm Hg 04/18/20 24 Blood pressure diastolic 70 mm Hg 024 Procedures Procedure Date Ordered Date Performed Result Body Sit e 64208-QYBIWWJ NAIL, 6 OR MORE 04/18/2024 N/A 95654-Gbhohsod Plate 04/18/2024 N/A 45065-KIOL SKIN LESIONS, OVER 4 04/18/2024 N/A Encounters Encounter Location Date Provider Diagnosis [facility] [place] [address] [place] [id number] 04/18/2024 Chaz Maria Type 1 diabetes mellitus with diabetic polyneuropathy E10.42 ; Tinea unguium B35.1 and Ingrown nail L60.0 Assessments Encounter Date Diagnosis (ICD Code) Assessment Notes Treatment Notes Treatment Clinical Notes Section Notes 04/18/2024 Type 1 diabetes mellitus with diabetic polyneuropathy (ICD-10 - E10.42) 04/18/2024 Tinea unguium (ICD-10 - B35.1) 04/18/2024 Ingrown nail (ICD-10 - L60.0) Plan Of Treatment Pending Test Test Name Order Date 73371-ETGPBXA NAIL, 6 OR MORE 04/18/2024 96865-Ruugiclg Plate 04/18/2024 29622-RJZS SKIN LESIONS, OVER 4 04/18/20 24 Next Appt Details Follow Up: prn, Reason: Provider Name:Chaz Maria , 10/17/2024 10:30:00 AM, [address] [facility], [place] [address], [place], [id number], Procedure Notes * Category Sub-Category Detail Notes [...] Motrin was recommended for pain or discomfort (31826) , DIABETES: Pt was advised as to the risk of delayed or nonhealing due to diabetes. Pt is to call the office with any questions, concerns, or complications Anesthesia was deferred - NEURO STEVE: patient has medically documented neuropathic condition affecting sensation Location Lateral nail border, T5 Debride Nail 6-10 Nail debridement Due to the cl inical pathology outlined in the exam findings, performance of this nail treatment is medically necessary as its management by an unskilled/untrained nonprofessional would put this patients foot and overall health at risk. Therefore, debridement to affected nail(s), as described in exam ( TA, T1, T4, T5, T6, T8, T9), was performed exclusively by the physician of record to reduce/remove overall nail length, girth, thickness, subungual debris, and necrotic tissue, by manual and/or electrical means through the use of a nail nipper and/or dremel-type pulp grinder feeder, to a more viable healthy nail plate or bed tissue 6-10 nails in total. Silver nitrate was used for any petechial bleeding as necessary. Definitive antifungal treatment options, both pharmaceutical and surgical, have been reviewed and discussed with the patient. The patient solely prefers the use of intermittent/as needed professional debridement services for their nail condition and understands the need for additional periodic treatments to maintain effectiveness in symptomatic relief - 48560 Keratoma Treatment Parring or Cutting o f Benign Hyperkeratotic Lesion(s) (-57) More than 4 Lesions - Due to the a t risk nature of the patients medical condition as documented in the exam findings, performance of this keratoderma treatment is medically necessary as its management by an unskilled/untrained nonprofessional would put this patients foot and overall health at risk. Therefore, the benign hyperkeratotic lesions, ( 8) in total, locations as stated and described in the exam ( Medial plantar, IPJ, TA, Medial plantar, IPJ, T5, SUB MTH (s), 1, B/L , SUB MTH (s), 3, Right , SUB MTH (s), 5, Right , Plantar, Heel(s), B/L), were pared, and/or cut utilizing a sterile 15 blade, tissue nippers, and/or power dremel instrumentation by the physician of record - 09260 Progress Notes * Tim WYLIEDOB:1945 ( 78 yo M)Acc No.[id number]:04/18/2024 Progress Note Patient:?Tim WYLIE Provider:?Chaz Maria DPM :1945???Age:78 Y???Sex:Male Abelino e:04/18/2024 Address:[address] [place] [address] Pcp:Evelyn Gustafson Subjective: * Chief Complaints: * ???At Risk FootcareIngrown N ail * HPI: ???At Risk footcare:?Pt States Last PCP Visit:?Date?01/30/2024 * ROS:?General/Constitutional:?Nausea?denies.?Vomiting?denies.?Hunger Thirst?denies.?Loss appetite?denies.?Chills?denies.?Fatigue?denies.?Fever?denies.?Night Sweats?denies.?Unexplained weight loss?denies.?Ophthalmologic:?Blurred [...] Verified] Objective: * Vitals:?Ht: 5ft 9in, Wt: 210 , BMI: 31.01, Shoe size: 9.5, BP: 138/70 mm Hg, BS: 96, Ht-cm: 175.26 cm, Wt-k.25 kg. * ???Past Orders: ???Lab:HEMOGLOBIN A1C (GLYCO HEMOGLOBIN) (Order Date - 04/18/2024) (Collection Date & Time - 04/18/2024 10:40 AM) ? Value Reference Range ?TOTAL HEMOGLOBIN (HGBA1C) 6.3 * Examination: ???Neurological: ?SENSORY:?Neurological exam demonstrates, reduced [...] TA, T1, T4, T5, T6, T8, T9, all other nails not described with characteristics as possessing mycosis are elongated, overgrown, and dystrophic, NAKUL-HORN appearance 10mm thickness or greater noted, T2, T7.?Ingrown Nail: ?INSPECTION:?Reveals nail incurvation, dull pain on palpation due to neuropathy, groove hypertrophy, Lateral nail border, T5.?Dermatologic: ?SKIN FINDINGS:?Skin exam reveals Keratotic lesion(s) located at, Medial plantar, IPJ, TA, Medial plantar, IPJ, T5, SUB MTH (s), 1, B/L , SUB MTH (s), 3, Right , SUB MTH (s), 5, Right , Plantar, Heel(s), B/L.? Assessment: * Assessment: 1.?Type 1 diabetes mellitus with diabetic polyneuropathy - E10.42 (Primary)???2.?Tinea unguium - B35.1???3.?Ingrown nail - L60.0???Specify :?Lateral nail border,?T5??? Plan: * Treatment: 2.?Ingrown nail?Procedure: 39909-Vhdaravm Plate * Procedures:?Debride Nail 6-10:?Nail debridement?Due to the clinical pathology outlined in the exam findings, performance of this nail treatment is medically necessary as its management by an unskilled/untrained nonprofessional would put this patients foot and overall health at risk. Therefore, debridement to affected nail(s), as described in exam (?TA,?T1,?T4,?T5,?T6,?T8,?T9), was performed exclusively by the physician of record to reduce/remove overall nail length, girth, thickness, subungual debris, and necrotic tissue, by manual and/or electrical means through the use of a nail nipper and/or dremel-type pulp grinder feeder, to a more viable healthy nail plate or bed tissue 6- 10 nails in total. Silver nitrate was used for any petechial bleeding as necessary. Definitive antifungal treatment options, both pharmaceutical and surgical, have been reviewed and discussed with the patient. The patient solely prefers the use of intermittent/as needed professional debridement services for their nail condition and understands the need for additional periodic treatments to maintain effectiveness in symptomatic relief - 61327.?Keratoma Treatment:?Parring or Cutting of Benign Hyperkeratotic Lesion(s)?(-57) More than 4 Lesions - Due to the at risk nature of the patients medical condition as documented in the exam findings, performance of this keratoderma treatment is medically necessary as its management by an unskilled/untrained nonprofessional would put this patients foot and overall health at risk. Therefore, the benign hyperkeratotic lesions, ( 8) in total, locations as stated and described in the exam (?Medial plantar,?IPJ,?TA,?Medial plantar,?IPJ,?T5,?SUB MTH (s),?1,?B/L?,?SUB MTH (s),?3,?Right?,?SUB MTH (s),?5,?Right?,?Plantar,?Heel(s),?B/L), were pared, and/or cut utilizing a sterile 15 blade, tissue nippers, and/or power dremel instrumentation by the physician of record - 04319.?Nail Avulsion:?Location?Lateral nail border,?T5.?Anesthesia?was deferred - NEUROPATHY: patient has medically documented [...] Motrin was recommended for pain or discomfort (32634) , DIABETES: Pt was advised as to the risk of delayed or nonhealing due to diabetes. Pt is to call the office with any questions, concerns, or complications.? * Procedure Codes:?87650 DEBRI DE NAIL, 6 OR MORE, Modifiers: XS 05001 Avulsion Plate, Modifiers: XS , [id number] TRIM SKIN LESIONS, OVER 4, Modifiers: XS * Follow Up:?prn * Images: * Sign off status: Completed true * Provider:?Chaz Maria DPM Date:?2023 Generated for Soto carroll/Femi/Joe on:?08/16/2024 12:28 PM EDT History and Physical Notes * HPI (History of Present Illness) Category Sub-Category Detail Notes Category Not es At Risk footcare Pt States Last PCP Visit: Date: 4 Examination Category Sub-Category Detail Notes Category Not es Ingrown Nail INSPECTION: Reveals nail inc urvation, dull pain on palpation due to neuropathy, groove hypertrophy, Lateral nail border, T5 Neurological SENSORY: Neurological exa m demonstrates, [...] , SUB MTH (s), 5, Right , Plantar, Heel(s), B/L Nails NAILS are: Elongated, overg rown, dystrophic, lytic, greater than 3mm thick, discolored and friable with crumbly malodorous subungual debris, TA, T1, T4, T5, T6, T8, T9, all other nails not described with characteristics as possessing mycosis are elongated, overgrown, and dystrophic, NAKUL-HORN appearance 10mm thickness or greater noted, T2, T7
== END 2024-08-16 11:14 | disposition home or self-care (01) ==
LOC: HO.HUSH 10:25
PROVIDERS: PCP Internal Medicine; Visit Provider Urology
DX: N30.40 Irradiation cystitis without hematuria (principal); N52.9 Male erectile dysfunction, unspecified; C61 Malignant neoplasm of prostate
CPT/HCPCS: 99214; G2211

== ENCOUNTER → 2024-08-16 10:25 | Outpatient (BNVA) | payer MEDICARE, SELFPAY | PROVIDERS: PCP Internal Medicine; Visit Provider Urology | DX: C61 Malignant neoplasm of prostate (principal); N30.40 Irradiation cystitis without hematuria; N52.9 Male erectile dysfunction, unspecified | CPT/HCPCS: 99212 ==